=== PATIENT | female | born 1975 | race Hispanic/Latino ===

== ENCOUNTER 2020-02-07 11:30 | Inpatient (IN) | payer BC ==
[2020-02-07 12:03] LABS: BASOPHILS % (AUTO) 0.2 % (0.0-5.0); EOSINOPHILS % (AUTO) 0.2 % (0.0-8.0); HEMATOCRIT 38.9 % (36-48); LYMPHOCYTES % (AUTO) 10.1 % (21.0-51.0); MEAN CORPUSCULAR HEMOGLOBIN 32.9 pg (27.0-33.0); MEAN CORPUSCULAR HGB CONC 33.9 g/dL (32.0-36.0); MONOCYTES % (AUTO) 7.5 % (3.0-13.0); NEUTROPHILS % (AUTO) 81.6 % (40.0-77.0); PLATELET COUNT (AUTO) 283 K/uL (130-400); RED BLOOD CELL COUNT(AUTO) 4.01 MIL/uL (4.00-5.50); RED CELL DISTRIBUTION WIDTH 12.1 % (11.0-15.5); WHITE BLOOD COUNT (AUTO) 8.5 K/uL (4.8-10.8)
[2020-02-07] MEDS ORDERED: ONDANSETRON HCL 4 MG/2 ML VIAL ONE (12:10)
[2020-02-07] MEDS ORDERED: FENTANYL CITRATE PF 50 MCG/1 ML 2ML VIAL ONE ×2 (12:15→13:55)
[2020-02-07 12:32] LABS: CREATININE 0.8 mg/dL (0.5-1.5)
[2020-02-07 12:37] LABS: ALBUMIN 3.9 g/dL (3.5-5.0); BILIRUBIN,TOTAL 0.7 mg/dL (0.2-1.0); TOTAL PROTEIN, SERUM 8.1 g/dL (6.0-8.3)
[2020-02-07] MEDS ORDERED: IOHEXOL-350 75 ML VIAL IV ONE (12:47)
[2020-02-07 13:15] LABS: APPEARANCE,URINE Clear (CLEAR); BILIRUBIN,URINE Negative (NEGATIVE); COLOR,URINE Yellow (YELLOW); GLUCOSE, URINE (UA) Negative (NEGATIVE); KETONES,URINE 15 mg/dL (NEGATIVE); LEUKOCYTE ESTERASE ,URINE Negative (NEGATIVE); NITRATE,URINE Negative (NEGATIVE); OCCULT BLOOD,URINE Negative (NEGATIVE); PH,URINE 7.5 (5.0-8.0); PROTEIN,URINE Negative (NEGATIVE); UROBILINOGEN,URINE 0.2 mg/dL (0.2-1.0)
[2020-02-07] MEDS ORDERED: KETOROLAC TROMETHAMINE 30MG/ML ONE (16:56)
[2020-02-07] MEDS ORDERED: KETOROLAC TROMETHAMINE 15MG/ML IM PRN (18:00)
[2020-02-07] MEDS ORDERED: MEPERIDINE-PF 25 MG/ML SYG IVP PRN (18:00)
[2020-02-07] MEDS ORDERED: HYDRALAZINE HCL 20 MG/ML VIAL IV PRN (18:00)
[2020-02-07] MEDS ORDERED: CEFAZOLIN SODIUM 1 GM VIAL ONE (20:28)
[2020-02-07] MEDS ORDERED: SODIUM CHLORIDE 0.9% 50 ML IV ONE (20:30)
--- NOTE | 2020-02-07 20:40 | NUR ---
PATIENT PREFERS NOT TO WEAR SCD's, removed Addendum: 02/08/20 at 0218 by JULIA DILL LVN Amended: Links added.
--- NOTE | 2020-02-07 20:40 | NUR ---
abdomen scars to abd intact, 2 steri strips to umbilicus D/I Addendum: 02/08/20 at 0218 by JULIA DILL LVN Amended: Links added.
[2020-02-07 20:42] VITALS: BP 104/62
[2020-02-07] MEDS: HEPARIN SODIUM 5000UNIT/ML 1ML VIAL SQ SCH (22:18)
[2020-02-07] MEDS: METRONIDAZOLE 500 MG TABLET PO SCH (22:18)
[2020-02-07] MEDS: HYDROCODONE/ACETAMINOPHEN 5/325 MG TAB PO PRN (22:24)
[2020-02-07 23:34] VITALS: BP 88/53
[2020-02-08 03:43] VITALS: BP 94/51
[2020-02-08 04:41] LABS: BASOPHILS % (AUTO) 0.3 % (0.0-5.0); EOSINOPHILS % (AUTO) 1.1 % (0.0-8.0); MEAN CORPUSCULAR HEMOGLOBIN 32.7 pg (27.0-33.0); MEAN CORPUSCULAR HGB CONC 32.6 g/dL (32.0-36.0); MEAN CORPUSCULAR VOLUME 100.3 fL (79-99); MONOCYTES % (AUTO) 9.4 % (3.0-13.0); NEUTROPHILS % (AUTO) 74.9 % (40.0-77.0); PLATELET COUNT (AUTO) 206 K/uL (130-400); RED BLOOD CELL COUNT(AUTO) 3.39 MIL/uL (4.00-5.50); RED CELL DISTRIBUTION WIDTH 12.2 % (11.0-15.5); WHITE BLOOD COUNT (AUTO) 6.4 K/uL (4.8-10.8)
[2020-02-08] MEDS ORDERED: ONDANSETRON HCL 4 MG/2 ML VIAL IVP PRN (04:45)
[2020-02-08] MEDS ORDERED: ONDANSETRON HCL 4 MG/2 ML VIAL ONE (04:52)
[2020-02-08 04:59] LABS: CREATININE 0.8 mg/dL (0.5-1.5); POTASSIUM 3.5 mmol/L (3.5-5.1)
[2020-02-08] MEDS: SODIUM CHLORIDE 0.9% 1000ML 1,000 ML IV SCH ×2 (05:25→15:40)
[2020-02-08] MEDS: CEFEPIME HCL 2 GM VIAL IVP SCH ×2 (06:18→18:10)
[2020-02-08 07:44] VITALS: BP 94/45
--- NOTE | 2020-02-08 08:15 | NUR ---
Dr. Sotelo at bedside. pt seen and informed of the result of ct scan. Pt is discharged from his care and to follow up in 1 week.
[2020-02-08] MEDS: METRONIDAZOLE 500 MG TABLET PO SCH ×3 (09:11→23:08)
[2020-02-08] MEDS: HYDROCODONE/ACETAMINOPHEN 5/325 MG TAB PO PRN ×2 (09:14→15:40)
[2020-02-08] MEDS: HEPARIN SODIUM 5000UNIT/ML 1ML VIAL SQ SCH (09:19)
--- NOTE | 2020-02-08 09:35 | NUR ---
Dr. Fisher at bedside. New orders received
[2020-02-08 11:09] VITALS: BP 87/51
--- NOTE | 2020-02-08 12:10 | NUR ---
Dr. Casanova and Adrian WANG at bedside, new orders received
--- NOTE | 2020-02-08 13:30 | NUR ---
scanned bladder of pt after voiding as per Dr. Mitchell' order, residual - [address] mitchell of the result and lab results as well. no orders received.
--- NOTE | 2020-02-08 15:49 | NUR ---
CM NOTE/IA MEET WITH PATIENT IN ROOM. PER PATIENT, LIVES WITH SPOUSE AND 2 MINOR KIDS, INDEPENDENT WITH ADLS, NO USE OF DME OR PROVIDERS, AND FEELS SAFE TO RETURN HOME ONCE DISCHARGED FROM HOSPITAL. Addendum: 02/08/20 at 1552 by MALIA LEGGETT RN CM Amended: Links added.
[2020-02-08 16:09] VITALS: BP 94/56
--- NOTE | 2020-02-08 17:23 | NUR ---
to ct scan via wheelchair by electric welder Addendum: 02/08/20 at 1726 by KASHIF OCONNOR RN Amended: Links added.
--- NOTE | 2020-02-08 17:34 | NUR ---
pt is back from ct Addendum: 02/08/20 at 1740 by KASHIF OCONNOR RN Amended: Links added.
[2020-02-08 19:46] VITALS: BP 102/57
[2020-02-08 23:56] VITALS: BP 98/52
[2020-02-09] MEDS ORDERED: KETOROLAC TROMETHAMINE 15MG/ML IV PRN
[2020-02-09 03:13] VITALS: BP 88/55
[2020-02-09] MEDS: SODIUM CHLORIDE 0.9% 1000ML 1,000 ML IV SCH (05:02)
[2020-02-09] MEDS: CEFEPIME HCL 2 GM VIAL IVP SCH (05:53)
[2020-02-09] MEDS: HYDROCODONE/ACETAMINOPHEN 5/325 MG TAB PO PRN (06:26)
[2020-02-09 07:35] VITALS: BP 92/54
--- NOTE | 2020-02-09 08:30 | NUR ---
ASSESSED AND NOTED INCISIONS FROM [facility] FROM 3 WEEKS AGO AND ARE HEALING WELL. PATIENT HAS 2 STERI STRIPS TO UMBILICUS AND NO REDNESS OR DRAINAGE NOTED TO SITE. DENIES PAIN ON ASSESSMENT.
[2020-02-09] MEDS: METRONIDAZOLE 500 MG TABLET PO SCH (09:14)
--- NOTE | 2020-02-09 10:00 | NUR ---
DR. MOREAU ROUNDED AND INFORMED PATIENT ON DISCHARGE FROM HIS CARE. INFORMED PATIENT ON NEED TO FOLLOW UP WITH DR. SEQUEIRA IN ONE WEEK IN CLINIC. NO NEED TO DISCHARGE ON ANTIBIOTICS.
[2020-02-09 11:38] VITALS: BP 92/49
--- NOTE | 2020-02-09 13:15 | NUR ---
DR. PINEDA CALLED RE ROUNDING ON PATIENT AND INDICATED WOULD BE COMING AFTER LUNCH AND ROUNDED AT THIS TIME. PATIENT INFORMED OF FINDINGS AND NO NEED FOR FURTHER ANTIBIOTICS BUT ALSO REINFORCED NEED TO FOLLOW UP WITH DR. SEQUEIRA NEXT WEEK. PATIENT VERBALIZED UNDERSTANDING NEED TO SEE HER DISTILLERY MILLER. PIV WAS REMOVED FOR DISCHARGE AND IV SITE WNL.
--- NOTE | 2020-02-09 14:30 | NUR ---
PATIENT WAS TAKEN VIA W/C TO FAMILY VEHICLE AND WAS DISCHARGED TO HER SPOUSE IN STABLE CONDITION.
== END 2020-02-09 14:30 | disposition home or self-care (01) | DRG 759 ==
LOC: EDH 11:30 → EDHIP 17:49 → WSH 20:40
PROVIDERS: ADMIT Hospitalist; ATTEND Hospitalist
DX: N70.11 Chronic salpingitis (principal); K52.9 Noninfective gastroenteritis and colitis, unspecified; D25.9 Leiomyoma of uterus, unspecified; Z90.49 Acquired absence of other specified parts of digestive tract; Z97.5 Presence of (intrauterine) contraceptive device; Z88.8 Allergy status to other drugs, medicaments and biological substances
CPT/HCPCS: 36415; 74176; 74177; 76830; 80048; 80053; 81003; 81025; 83605; 84145; 85025; 85651; 86140; 87040; G0378; J0690; J0692; J1644; J1885; J2405; J3010; J7030; Q9967

== ENCOUNTER 2021-05-26 13:59 | Emergency (ER) | payer BC ==
[~2021-05-26] VITALS: Ht 170.2 cm; Wt 63.5 kg
[2021-05-26 14:02] VITALS: BP 103/77
[2021-05-26] MEDS ORDERED: ALBU8.5H8 IH (16:34)
[2021-05-26] MEDS ORDERED: BROM237S PO (16:34)
[2021-05-26] MEDS ORDERED: PSEU120T61 PO (16:34)
== END 2021-05-26 16:58 | disposition home or self-care (01) ==
LOC: EDH 13:59
DX: U07.1 COVID-19 (principal); E11.9 Type 2 diabetes mellitus without complications; F17.200 Nicotine dependence, unspecified, uncomplicated; Z79.899 Other long term (current) drug therapy; Z88.0 Allergy status to penicillin; Z88.5 Allergy status to narcotic agent; Z90.49 Acquired absence of other specified parts of digestive tract
CPT/HCPCS: 71045; 87635; 99283; C9803

== ENCOUNTER → 2023-07-05 | Outpatient (CLI) | payer BC ==
[~2023-07-05] MED LIST: ALBU8.5H8 IH; BROM237S PO; PSEU120T61 PO
== END | disposition home or self-care (01) ==
LOC: LAB 09:35
PROVIDERS: ATTEND Internal Medicine Cardiovascular Disease
DX: R00.2 Palpitations (principal)
CPT/HCPCS: 36415; 84443

== ENCOUNTER → 2023-11-24 | Outpatient (CLI) | payer OTHER | END | disposition home or self-care (01) | LOC: RAH 11:01 | PROVIDERS: ATTEND Nurse Practitioner Adult Health | DX: Z13.6 Encounter for screening for cardiovascular disorders (principal) | CPT/HCPCS: 75571 ==